=== PATIENT | male | born 1995 ===

== ENCOUNTER 2017-04-07 17:38 | Emergency (ER) | payer MEDICAID ==
[2017-04-07 17:50] VITALS: BP 134/70; PULSE 84; RESP 16; TEMP 98; O2SAT 98
--- NOTE | 2017-04-07 18:34 | ED PDOC ---
HPI: Psych/Substance Abuse Time Seen by Provider: 04/07/17 17:58 Chief Complaint (Nursing): Psychiatric Evaluation Chief Complaint (Provider): Crisis eval History Per: Patient Additional Complaint(s): Patient requesting to speak with "mental health doctor" because he is "homeless. " Patient reports history of depression. Denies SI/HI. Pt denies nay physical complaints at this time Past Medical History Reviewed: Nursing Documentation, Vital Signs Vital Signs: Last Vital Signs Temp 98.0 F 04/07/17 17:45 Pulse 84 04/07/17 17:45 Resp 16 04/07/17 17:45 BP 134/70 04/07/17 17:45 Pulse Ox 98 04/07/17 17:45 - Medical History PMH: No Chronic Diseases - Surgical History Surgical History: No Surg Hx - Family History Family History: States: Unknown Family Hx - Allergies Allergies/Adverse Reactions: Allergies Allergy/AdvReac Type Severity Reaction Status Date / Time No Known Allergies Allergy Verified 04/07/17 17:45 Review of Systems ROS Statement: Except As Marked, All Systems Reviewed And Found Negative Physical Exam - Reviewed Nursing Documentation Reviewed: Yes Vital Signs Reviewed: Yes - Physical Exam Appears: Positive for: Well, Non-toxic, No Acute Distress Head Exam: Positive for: ATRAUMATIC, NORMAL INSPECTION, NORMOCEPHALIC Skin: Positive for: Normal Color, Warm, DRY Eye Exam: Positive for: EOMI, Normal appearance, PERRL ENT: Positive for: Normal ENT Inspection Neck: Positive for: Normal, Painless ROM Cardiovascular/Chest: Positive for: Regular Rate, Rhythm Respiratory: Positive for: CNT, Normal Breath Sounds Gastrointestinal/Abdominal: Positive for: Normal Exam, Bowel Sounds, Soft Back: Positive for: Normal Inspection Extremity: Positive for: Normal ROM Neurologic/Psych: Positive for: Alert, Oriented - ECG O2 Sat by Pulse Oximetry: 98 Medical Decision Making Medical Decision Making: Pt underwent crisis eval, see notes Disposition - Clinical Impression Clinical Impression: Schizophrenia - Patient ED Disposition Is Patient to be Admitted: No - Disposition Disposition: Routine/Home Disposition Time: 19:20 Condition: STABLE Instructions: Schizophrenia (ED) Forms: [employer] (Cuban)
== END 2017-04-07 19:56 | disposition home or self-care (01) ==
LOC: H.ER 17:38
DX: F20.9 Schizophrenia, unspecified (principal); Z59.0 Homelessness

== ENCOUNTER 2017-10-09 13:52 | Emergency (ER) | payer MEDICAID ==
[2017-10-09 13:57] VITALS: TEMP 99; O2SAT 98
[2017-10-09] MEDS ORDERED: Tdap Vaccine 0.5 ml Vial (10-64 yrs) IM ONE ×2 (14:09→15:00)
--- NOTE | 2017-10-09 15:01 | ED PDOC ---
Lower Extremity Pain/Injury Time Seen by Provider: 10/09/17 14:03 Chief Complaint (Nursing): Lower Extremity Problem/Injury Chief Complaint (Provider): Injury to bilateral Knees History Per: Patient History/Exam Limitations: no limitations Onset/Duration Of Symptoms: Days (x5) Current Symptoms Are (Timing): Still Present Severity: None Additional History Per: Patient Additional Complaint(s): 21 year old male presents to the emergency department with injury to his bilateral knees. Patient states that 5 days ago he fell, sustaining cuts to both his knees. He reports that he has been treating the cuts with neosporin but has since developed redness to the left knee around the wound. Denies fever , antipyretic use, numbness, tingling. PMD: Kevin Newsome - Knee Description Of Injury: Fell - Risk Factors DVT Risk Factors: Pos: None Past Medical History Reviewed: Historical Data, Nursing Documentation, Vital Signs Vital Signs: Last Vital Signs Temp 99 F 10/09/17 13:54 Pulse 112 H 10/09/17 13:54 Resp 20 10/09/17 13:54 BP 129/78 10/09/17 13:54 Pulse Ox 98 10/09/17 13:54 - Medical History PMH: Schizophrenia Denies: Diabetes, Hepatitis, HIV, HTN, Seizures, Sexually Transmitted Disease - Surgical History Surgical History: No Surg Hx - Family History Family History: States: Unknown Family Hx - Home Medications Home Medications: Ambulatory Orders Medication Instructions Recorded Cephalexin [cephalexin] 500 mg PO Q6 #28 cap 10/09/17 - Allergies Allergies/Adverse Reactions: Allergies Allergy/AdvReac Type Severity Reaction Status Date / Time No Known Allergies Allergy Verified 04/07/17 17:45 Review of Systems Constitutional: Negative for: Fever Musculoskeletal: Positive for: Other (cuts to bilateral knees) Neurological: Negative for: Numbness (no numbness or tingling to knees) Physical Exam - Reviewed Nursing Documentation Reviewed: Yes Vital Signs Reviewed: Yes - Physical Exam Appears: Positive for: Non-toxic, No Acute Distress Skin: Positive for: Normal Color, Warm, Dry. Negative for: Rash Eye Exam: Positive for: Normal appearance, EOMI, PERRL Pulses-Dorsalis Pedis (L): 2+ Pulses-Dorsalis Pedis (R): 2+ Extremity: Positive for: Normal ROM (Full ROM actively to right and left knee), Other (right knee: superficial abrasion on anterior surface, no tenderness no swelling full ROM actively. Left knee superficial abrasion w/ surrounding erythema no swelling no fluctuance, full ROM actively. ). Negative for: Deformity, Swelling (no swelling to b/l knees) Neurologic/Psych: Positive for: Alert, Oriented, Gait - ECG O2 Sat by Pulse Oximetry: 98 (RA) Pulse Ox Interpretation: Normal - Progress ED Course And Treament: Wound cleansed and dressed by RN. Medical Decision Making Medical Decision Makin Initial Impression 21 year old male presenting with the emergency department with injury to bilateral knee Initial plan: * RAD right Knee * RAD lft Knee * Adacel 0.5 mL IM * Keflex 500mg PO * Reevaluation 1539 PROCEDURE: Bilateral Knee Radiographs. HISTORY: trauma COMPARISON: Left knee radiographs 11/13/2012. FINDINGS: BONES: Right Knee: Normal. No fracture. Left Knee: A stable, small nonaggressive cyst is seen at the left tibial plateau posteriorly. No fracture. JOINTS: Right Knee: Normal. No osteoarthritis. Left knee: Normal. No osteoarthritis. SOFT TISSUES: Right Knee: Normal. Left Knee: Normal. JOINT EFFUSION: Right Knee: None. Left Knee: None. OTHER FINDINGS: None. IMPRESSION: No acute fracture dislocation bilateral knees. Local soft tissues appear diffusely unremarkable. MEGHANN JIN, thank you for letting us take care of you today. Your provider was Danish Perry PA-C and you were treated for KNEE PAIN. The emergency medical care you received today was directed at your acute symptoms. If you were prescribed any medication, please fill it and take as directed. It may take several days for your symptoms to resolve. Return to the Emergency Department if your symptoms worsen, do not improve, or if you have any other problems. Please contact your doctor or call one of the physicians/clinics you have been referred to that are listed on the Patient Visit Information form that is included in your discharge packet. Bring any paperwork you were given at discharge with you along with any medications you are taking to your follow up visit. Our treatment cannot replace ongoing medical care by a primary care provider outside of the emergency department. Thank you for allowing the [facility] team to be part of your care today. If you had an X-Ray or CT scan: A Radiologist will review the ED reading if any change in treatment is needed we will contact you. Documented by Maia Cota acting as a scribe for Danish Perry PA-C. All medical record entries made by the Scribe were at my direction and personally dictated by me. I have reviewed the chart and agree that the record accurately reflects my personal performance of the history, physical exam, medical decision making, and the department course for this patient. I have also personally directed, reviewed, and agree with the discharge instructions and disposition. Disposition - Clinical Impression Clinical Impression: Cellulitis, Abrasions of multiple sites with infection - Patient ED Disposition Is Patient to be Admitted: No - Disposition Referrals: Casey Nava [Outside] Disposition: Routine/Home Disposition Time: 15:45 Condition: STABLE Additional Instructions: Follow up with Dr. Escobar in 2 days for further evaluation. Return to ED immediately if symptoms worsen. Prescriptions: Cephalexin [cephalexin] 500 mg PO Q6 #28 cap Instructions: Wound Care (DC), Cellulitis (Skin Infection), Adult (DC), Skin Abrasions (DC), Cephalexin, Tdap Vaccine Forms: [employer] (Beijing) [employer] (Z[place]an) Print Language: GUYANESE - POA Present On Arrival: None
--- NOTE | 2017-10-09 15:41 | RAD ---
PROCEDURE: Bilateral Knee Radiographs. HISTORY: trauma COMPARISON: Left knee radiographs 11/13/2012. FINDINGS: BONES: Right Knee: Normal. No fracture. Left Knee: A stable, small nonaggressive cyst is seen at the left tibial plateau posteriorly. No fracture. JOINTS: Right Knee: Normal. No osteoarthritis. Left knee: Normal. No osteoarthritis. SOFT TISSUES: Right Knee: Normal. Left Knee: Normal. JOINT EFFUSION: Right Knee: None. Left Knee: None. OTHER FINDINGS: None. IMPRESSION: No acute fracture dislocation bilateral knees. Local soft tissues appear diffusely unremarkable.
[2017-10-09 16:19] VITALS: BP 118/72; PULSE 88; RESP 16
== END 2017-10-09 16:18 | disposition home or self-care (01) ==
LOC: H.ER 13:52
DX: L03.115 Cellulitis of right lower limb (principal); L03.116 Cellulitis of left lower limb; F20.9 Schizophrenia, unspecified

== ENCOUNTER 2017-10-18 21:47 | Inpatient (IN) | payer MEDICAID ==
--- NOTE | 2017-10-18 22:23 | ED PDOC ---
Lower Extremity Pain/Injury Time Seen by Provider: 10/18/17 22:07 Chief Complaint (Nursing): Lower Extremity Problem/Injury Chief Complaint (Provider): leg pain History Per: Patient History/Exam Limitations: no limitations Onset/Duration Of Symptoms: Days (1 week) Additional Complaint(s): 21 y/o male presents for evaluation of pain to bilateral legs x 1 week. Patient states symptoms started after a [id number], sustained abrasions to bilateral knees. Patient was evaluated here and had xray's and prescribed antibiotics. Patient states he still has pain surrounding both knees, and has been unable to walk since last visit. Also notes intermittent numbness. Denies fever, nausea/vomiting, back pain, bowel/bladder incontinence, weakness of extremities. Past Medical History Reviewed: Historical Data, Nursing Documentation, Vital Signs Vital Signs: Last Vital Signs Temp 98.2 F 10/18/17 21:55 Pulse 102 H 10/18/17 21:55 Resp 18 10/18/17 21:55 BP 142/76 10/18/17 21:55 Pulse Ox 98 10/18/17 21:55 - Medical History PMH: Schizophrenia Denies: Diabetes, Hepatitis, HIV, HTN, Seizures, Sexually Transmitted Disease - Surgical History Surgical History: No Surg Hx - Family History Family History: States: Unknown Family Hx - Living Arrangements Living Arrangements: Alone (homeless) - Home Medications Home Medications: Ambulatory Orders Medication Instructions Recorded RX: No Known Home Med 10/19/17 - Allergies Allergies/Adverse Reactions: Allergies Allergy/AdvReac Type Severity Reaction Status Date / Time No Known Allergies Allergy Verified 04/07/17 17:45 Review of Systems ROS Statement: Except As Marked, All Systems Reviewed And Found Negative Musculoskeletal: Positive for: Leg Pain Physical Exam - Reviewed Nursing Documentation Reviewed: Yes Vital Signs Reviewed: Yes - Physical Exam Appears: Positive for: Well, Non-toxic, Uncomfortable (anxious) Head Exam: Positive for: ATRAUMATIC, NORMAL INSPECTION, NORMOCEPHALIC Skin: Positive for: Normal Color Eye Exam: Positive for: Normal appearance ENT: Positive for: Normal ENT Inspection Cardiovascular/Chest: Positive for: Regular Rate, Rhythm Respiratory: Positive for: Normal Breath Sounds Gastrointestinal/Abdominal: Positive for: Normal Exam Back: Positive for: Normal Inspection Extremity: Positive for: Normal ROM (patient actively moving all 4 extremities without difficulty), Other (healing abrasions to bilateral knees; no surrounding edema,or erythema noted. FROM. Distal NV/motor intact) Neurologic/Psych: Positive for: Alert, Oriented (x3), Mood/Affect (flat; internally preoccupied, poor eye contact) - Laboratory Results Result Diagrams: 10/19/17 01:20 10/19/17 01:20 - ECG O2 Sat by Pulse Oximetry: 98 - Progress ED Course And Treament: Patient states he cannot move legs, but is moving them Patient states he cannot write his name, but writes it perfectly H/O schizophrenia but states he does not take meds because he "does not have schizophrenia anymore" Patient displaying paranoid behavior about his body not working, yet moving all extremities during exam; appear to be psychosomatic complaints Patient evaluated by ED attending Dr. Schroeder, agrees with plan to order crisis eval Patient evaluated by drag out worker; to be admitted as per Dr. Dumont Medical Decision Making Medical Decision Making: Patient medically stable for psych admission Disposition - Clinical Impression Clinical Impression: Schizophrenia - Patient ED Disposition Is Patient to be Admitted: Yes - Disposition Disposition Time: 03:02 Condition: STABLE
[2017-10-19 01:27] LABS: BASO # 0.1 K/uL (0.0-0.2); BASO % 1.1 % (0.0-2.0); EOS # 0.1 K/uL (0.0-0.7); EOS % 1.2 % (0.0-4.0); HEMOGLOBIN 12.6 g/dL (12.0-18.0); LYMPH # 2.2 K/uL (1.0-4.3); MEAN CELL VOLUME 87.7 fl (80.0-94.0); MEAN CORPUSCULAR HEMOGLOBIN 29.1 pg (27.0-31.0); MEAN CORPUSCULAR HGB CONC 33.2 g/dL (33.0-37.0); MEAN PLATELET VOLUME 9.7 fl (7.2-11.7); MONO # 0.8 K/uL (0.0-0.8); MONO % 12.1 % (0.0-10.0); NEUT # 3.1 K/uL (1.8-7.0); NEUT % 49.6 % (50.0-75.0); NRBC % 0.1 % (0.0-0.0); RBC 4.33 Mil/uL (4.40-5.90); RED CELL DISTRIBUTION WIDTH 15.6 % (11.5-14.5); WHITE BLOOD COUNT 6.2 K/uL (4.8-10.8)
[2017-10-19 01:40] LABS: ALB/GLOB RATIO 1.2 (1.0-2.1); ALBUMIN 3.6 g/dL (3.5-5.0); ALT/SGPT 45 U/L (21-72); AST/SGOT 22 U/L (17-59); BLOOD UREA NITROGEN 10 mg/dl (9-20); CALCIUM 9.1 mg/dL (8.4-10.2); GFR AFRICAN-AMERICAN > 60; GFR NON-AFRICAN AMERICAN > 60
[2017-10-19 04:05] LABS: URINE BACTERIA RARE (<OCC); URINE BILIRUBIN NEGATIVE (NEGATIVE); URINE BLOOD NEGATIVE (NEGATIVE); URINE CLARITY SLIGHTY-CLOUDY (Clear); URINE COLOR YELLOW (YELLOW); URINE GLUCOSE (UA) NEG (Normal); URINE LEUKOCYTE ESTERASE NEG Leu/uL (Negative); URINE PROTEIN NEGATIVE (NEGATIVE)
[2017-10-19 04:15] LABS: BARBITURATES, UR NEGATIVE (NEGATIVE); BENZODIAZEPINES, UR NEGATIVE (NEGATIVE); OPIATES, UR NEGATIVE (NEGATIVE); PHENCYCLIDINE, UR NEGATIVE (NEGATIVE)
[2017-10-19 04:39] VITALS: O2SAT 100
[2017-10-19] MEDS ORDERED: DiphenhydrAMINE 50 mg/ml Inj IM PRN (05:48)
[2017-10-19] MEDS ORDERED: Magnesium Hydroxide Susp 30 ml UD PO PRN (05:48)
[2017-10-19] MEDS ORDERED: Alum-Mag Hydrox-Simethicone Susp (30 mL) PO PRN (05:48)
--- NOTE | 2017-10-19 06:01 | PCM.BM ---
<AugustmattIgor - Last Filed: 10/19/17 05:59> Treatment Plan Problems - Problems identified on initial assessmt Medication nonadherence Date Initiated: 10/19/17 Time Initiated: 06:00 Assessment reference: NA Status: Active Altered Thought Process Date Initiated: 10/19/17 Time Initiated: 06:00 Assessment reference: NA Status: Active Self Concept Disturbance Date Initiated: 10/19/17 Time Initiated: 06:00 Assessment reference: NA Status: Active Ineffective Coping Date Initiated: 10/19/17 Time Initiated: 06:01 Assessment reference: NA Status: Active Self Care Deficit Date Initiated: 10/19/17 Time Initiated: 06:01 Assessment reference: NA Status: Active Treatment assets and liabiliti Patient Assests: cooperative, self-reliant, good support system, negotiates basic needs Patient Liabilities: live alone, physical pain, substance abuse - Milieu Protocol Maintain good personal hygiene: every shift Encourage regular showers, every shift Remind patient to perform daily oral care, every shift Assist patient to perform ADL's Maintain personal safety: daily Educate patient to report safety concerns to staff, daily Monitor environment for contraband/sharps Medication safety: Monitor for expected outcome, potential side effects: daily, Assess barriers to learning: daily, Assess readiness for medication education: daily <Lois Dumont - Last Filed: 10/19/17 08:37> - Diagnosis (1) Schizophrenia Status: Acute Interventions: Medication management, Individual and group therapy, Psychoeducation 10/19/17 08:37 <Italo Yeboah - Last Filed: 10/20/17 08:57> Family Contact Family involvement: Famliy/SO not involved Family contact: Patient declines to allow family contact at present Family contact name: Pt refused. - Goals for Treatment Patient goals for treatment: Pt reported he would like his infection to be cures. Pt appeares to be floridly psychotic and his thought process and content is influenced by delusions, so realistic, relevant goals were unable to be made. Discharge/Continuing Care - Education Needs Education Needs: Patient Medication, Patient Diagnosis/Disease Process, Patient Coping Skills, Patient Placement options, Patient Community resources, Patient Personal Hygiene/Grooming, Patient Aftercare Safety Plan - Discharge Discharge Criteria: Tolerates medication w/o severe side effects, Free of paranoid thoughts, Free of agitation, Normal sleep pattern, Ability to care for self, Reduction of target symptoms Discharge to:: Detention - Additional Comments 10/20/17 08:56 Pt reported he was admitted due to an infection from cuts on his knees. Pt reported that the infection was deeper in his body. Pt admitted to hearing voices on and off and he appeared internally preoccupied and unable to hold eye contact. Pt appeared in bed due to believing that he cannot walk and his appearance was unkempt. - Treatment Team Participation Discussed with Family/SO: No Was Patient/Family/SO present at Treatment Team Meeting: Yes
[2017-10-19 07:38] LABS: T4 8.48 ug/dl (5.5-11.0)
--- NOTE | 2017-10-19 08:25 | PCM.PSYCH ---
Initial Psychiatric Evaluation - Initial Psychiatric Evaluation Type of Admission: Voluntary Legal Status: Capacity Chief Complaint (in patient's own words): "My body isn't functioning right." Patient's Reaction to Hospitalization: HPI: 21 yo male w/ h/o schizophrenia, presents w/ generalized body complaints that his body isn't working and that he can't walk or write; despite not having any obvious functional deficits. He reports feeling depressed due to perceiving that his body isn't working. He reports that he last heard auditory hallucinations yesterday. He has been non-compliant with treatment and medications, but reports that he was last prescribed Risperdal. He is a poor historian and gives minimal information. Denies VH/SI/HI/paranoia. PPHx: H/o Schizophrenia; h/o psychiatric admission 2013. Not complaint with treatment or medications PMHx: Denies chronic medical conditions except for above complaints that his body does not function properly ALL: NKDA FHx: Denies family history; as per chart, patient's mother may have mental illness SHx: Patient reports that he lives w/ his father, but this is unclear as per chart. Denies drugs/etoh/cig. Current Medications: Active Medications Generic Name Dose Route Start Last Admin Trade Name Freq PRN Reason Stop Dose Admin Acetaminophen 650 mg 10/19/17 05:48 Tylenol 325mg Tab PO Q4 PRN Pain, moderate (4-7) Al Hydrox/Mg Hydrox/Simethicone 30 ml 10/19/17 05:48 Maalox Plus 30 Ml PO Q4 PRN Dyspepsia Diphenhydramine HCl 50 mg 10/19/17 05:48 Benadryl IM Q6 PRN Extrapyramidal S/S Unable PO Diphenhydramine HCl 50 mg 10/19/17 05:48 Benadryl PO Q6 PRN Extrapyramidal Symptoms Haloperidol 5 mg 10/19/17 05:48 Haldol PO Q4 PRN Agitation Haloperidol Lactate 5 mg 10/19/17 05:48 Haldol IM Q4 PRN Agitation, Unable to Take PO Lorazepam 1 mg 10/19/17 05:48 Ativan IM Q8 PRN Anxiety/Agitation,Unable PO Lorazepam 1 mg 10/19/17 05:48 Ativan PO Q8 PRN Anxiety/Agitation Magnesium Hydroxide 30 ml 10/19/17 05:48 Milk Of Magnesia PO HS PRN Constipation Past Psychiatric History - Past Psychiatric History Previous Treatment History: Inpatient Pertinent Medical Hx (Current Medical&Sleep Prob, Allergies): Allergies Allergy/AdvReac Type Severity Reaction Status Date / Time No Known Allergies Allergy Verified 04/07/17 17:45 No Known Home Med 10/19/17 Review of Systems - Psychiatric Psychiatric: As Per HPI, Auditory Hallucinations, Depression, Difficulty Concentrating Mental Status Examination - Personal Presentation Personal Presentation: Looks stated age - Affect Affect: Blunted - Motor Activity Motor Activity: Psychomotor Retardation - Reliability in Providing Information Reliability in Providing Information: Poor, due to alteration in thoughts - Speech Speech: Disorganized - Mood Mood: Depressed - Formal Thought Process Formal Thought Process: Delusions (Delusions that his body is not functioning) - Hallucinations/Delusions Hallucinations: Auditory - Obsessions/Compulsions Obsessions: No Compulsions: No - Cognitive Functions Orientation: Person, Place, Situation, Time Sensorium: Alert Judgement: Imparied, as evidence by: Poor judgement, Imparied, as evidence by: Lack of insight into illness Memory: Recent intact, as evidence by: Ability to recall events of the day - Risk Risk: Diminished functioning - Strength & Assets Inventory Strength & Assets Inventory: Cooperative DSM 5 DX - DSM 5 DSM 5 Diagnosis: Schizophrenia - Recommended/Plan of Treatment Treatment Recommendations and Plan of Treatment: Schizophrenia -Admit to psychiatry unit -Medicine consult -Start Risperdal -Individual and group therapy -Obtain collateral history -Disposition planning Projected ELOS: 7-10 days Discharge Plan and Discharge Criteria: Discharge when patient is psychiatrically stable - Smoking Cessation Smoking Cessation Initiated: No Reason for not providing: Not indicated
--- NOTE | 2017-10-19 10:48 | CP.PCM.CON ---
History of Present Illness - History of Present Illness History of Present Illness: REASON FOR CONSULT: per hospital protocol HPI: 21 year old male PMH schizophrenia currently admitted to psych for schizophrenia. Pt believes he can not walk, however is moving upper and lower extremities spontaneously with 5/5 strength. HD stable, NAD. ROS: per HPI, all other systems reviewed and neg Past Patient History - Past Social History Smoking Status: Never Smoked - CARDIAC Hx Cardiac Disorders: No - PULMONARY Hx Tuberculosis: No - NEUROLOGICAL Hx Seizures: No - HEMATOLOGICAL/ONCOLOGICAL Hx Human Immunodeficiency Virus (HIV): No - MUSCULOSKELETAL/RHEUMATOLOGICAL Hx Falls: Yes - GENITOURINARY/GYNECOLOGICAL Hx Sexually Transmitted Disorders: No - PSYCHIATRIC Hx Substance Use: Yes (Cannabis) - SURGICAL HISTORY Hx Surgeries: Yes Hx Tonsillectomy: Yes - ANESTHESIA Hx Anesthesia: Yes Meds Allergies/Adverse Reactions: Allergies Allergy/AdvReac Type Severity Reaction Status Date / Time No Known Allergies Allergy Verified 04/07/17 17:45 - Medications Medications: Current Medications Acetaminophen (Tylenol 325mg Tab) 650 mg PO Q4 PRN PRN Reason: Pain, moderate (4-7) Last Admin: 10/19/17 09:16 Dose: 650 mg Al Hydrox/Mg Hydrox/Simethicone (Maalox Plus 30 Ml) 30 ml PO Q4 PRN PRN Reason: Dyspepsia Diphenhydramine HCl (Benadryl) 50 mg IM Q6 PRN PRN Reason: Extrapyramidal S/S Unable PO Diphenhydramine HCl (Benadryl) 50 mg PO Q6 PRN PRN Reason: Extrapyramidal Symptoms Haloperidol (Haldol) 5 mg PO Q4 PRN PRN Reason: Agitation Haloperidol Lactate (Haldol) 5 mg IM Q4 PRN PRN Reason: Agitation, Unable to Take PO Lorazepam (Ativan) 1 mg IM Q8 PRN PRN Reason: Anxiety/Agitation,Unable PO Lorazepam (Ativan) 1 mg PO Q8 PRN PRN Reason: Anxiety/Agitation Magnesium Hydroxide (Milk Of Magnesia) 30 ml PO HS PRN PRN Reason: Constipation Risperidone (Risperdal M-Tab) 0.5 mg PO Q12 RAFFY Physical Exam - Constitutional Appears: Well, No Acute Distress - Head Exam Head Exam: ATRAUMATIC, NORMAL INSPECTION, NORMOCEPHALIC - Eye Exam Eye Exam: EOMI, Normal appearance, PERRL Pupil Exam: NORMAL ACCOMODATION, PERRL - ENT Exam ENT Exam: Mucous Membranes Moist, Normal Exam - Neck Exam Neck exam: Positive for: Full Rom, Normal Inspection - Respiratory Exam Respiratory Exam: Clear to Auscultation Bilateral, NORMAL BREATHING PATTERN. absent: Rales - Cardiovascular Exam Cardiovascular Exam: REGULAR RHYTHM, +S1, +S2 - GI/Abdominal Exam GI & Abdominal Exam: Normal Bowel Sounds, Soft. absent: Organomegaly, Tenderness - Extremities Exam Extremities exam: Positive for: normal capillary refill, pedal pulses present - Back Exam Back exam: absent: CVA tenderness (L), CVA tenderness (R) - Neurological Exam Neurological exam: Alert, CN II-XII Intact, Oriented x3, Reflexes Normal - Psychiatric Exam Psychiatric exam: Flat Affect, Normal Mood Additional comments: seems preoccupied. - Skin Skin Exam: Dry, Warm Results - Vital Signs Recent Vital Signs: Last Vital Signs Temp 97.9 F 10/19/17 06:00 Pulse 84 10/19/17 06:00 Resp 19 10/19/17 06:00 BP 156/95 H 10/19/17 06:00 Pulse Ox 100 10/19/17 04:38 - Labs Result Diagrams: 10/19/17 01:20 10/19/17 01:20 Labs: Laboratory Results - last 24 hr 10/19/17 10/19/17 10/19/17 01:20 01:20 03:49 WBC 6.2 RBC 4.33 L Hgb 12.6 Hct 37.9 MCV 87.7 MCH 29.1 MCHC 33.2 RDW 15.6 H Plt Count 325 MPV 9.7 Neut % (Auto) 49.6 L Lymph % (Auto) 36.0 [place] % (Auto) 12.1 H Eos % (Auto) 1.2 Baso % (Auto) 1.1 Neut # (Auto) 3.1 Lymph # (Auto) 2.2 [place] # (Auto) 0.8 Eos # (Auto) 0.1 Baso # (Auto) 0.1 Sodium 139 Potassium 3.8 Chloride 102 Carbon Dioxide 26 Anion Gap 15 BUN 10 Creatinine 0.5 L Est GFR ( Amer) > 60 Est GFR (Non-Af Amer) > 60 Random Glucose 91 Calcium 9.1 Total Bilirubin 0.8 AST 22 ALT 45 Alkaline Phosphatase 48 Total Protein 6.8 Albumin 3.6 Globulin 3.1 Albumin/Globulin Ratio 1.2 Triglycerides Cholesterol LDL Cholesterol Direct HDL Cholesterol Thyroxine (T4) TSH 3rd Generation Urine Color Urine Clarity Urine pH Ur Specific [place] Urine Protein Urine Glucose (UA) Urine Ketones Urine Blood Urine Nitrate Urine Bilirubin Urine Urobilinogen Ur Leukocyte Esterase Urine RBC (Auto) Urine Microscopic WBC Urine Bacteria Urine Opiates Screen Negative Urine Methadone Screen Negative Ur Barbiturates Screen Negative Ur Phencyclidine Scrn Negative Ur Amphetamines Screen Negative U Benzodiazepines Scrn Negative U Oth Cocaine Metabols Negative U Cannabinoids Screen Positive H Alcohol, Quantitative < 10 10/19/17 10/19/17 03:49 06:55 WBC RBC Hgb Hct MCV MCH MCHC RDW Plt Count MPV Neut % (Auto) Lymph % (Auto) [place] % (Auto) Eos % (Auto) Baso % (Auto) Neut # (Auto) Lymph # (Auto) [place] # (Auto) Eos # (Auto) Baso # (Auto) Sodium Potassium Chloride Carbon Dioxide Anion Gap BUN Creatinine Est GFR ( Amer) Est GFR (Non-Af Amer) Random Glucose Calcium Total Bilirubin AST ALT Alkaline Phosphatase Total Protein Albumin Globulin Albumin/Globulin Ratio Triglycerides 141 Cholesterol 115 LDL Cholesterol Direct 66 HDL Cholesterol 17 L Thyroxine (T4) 8.48 TSH 3rd Generation 2.88 Urine Color Yellow Urine Clarity Slighty-cloudy Urine pH 6.0 Ur Specific [place] 1.024 Urine Protein Negative Urine Glucose (UA) Neg Urine Ketones Negative Urine Blood Negative Urine Nitrate Negative Urine Bilirubin Negative Urine Urobilinogen 4.0 Ur Leukocyte Esterase Neg Urine RBC (Auto) 3 Urine Microscopic WBC 2 Urine Bacteria Rare Urine Opiates Screen Urine Methadone Screen Ur Barbiturates Screen Ur Phencyclidine Scrn Ur Amphetamines Screen U Benzodiazepines Scrn U Oth Cocaine Metabols U Cannabinoids Screen Alcohol, Quantitative Assessment & Plan - Assessment and Plan (Free Text) Plan: 21 year old male PMH schizophrenia currently admitted to psych for schizophrenia. Pt believes he can not walk, however is moving upper and lower extremities spontaneously with 5/5 strength. HD stable, NAD. Schizophrenia - management per psych - patient also believes he can not walk - neuro consult was also ordered by primary team
[2017-10-19] MEDS: Risperidone M tab 0.5MG PO SCH ×2 (13:33→21:09)
--- NOTE | 2017-10-19 18:05 | CP.PCM.CON ---
History of Present Illness - History of Present Illness History of Present Illness: Neurology Consultation Note: Mr. Linn is a 21-year-old man with a past medical history of schizophrenia, who is non-compliant with medications, and presented to the ED complaining of difficulty with ambulation and function of his lower extremities. He said that the weakness has been gradual and at this point he is unable to ambulate. He has scabs on both knees from recent falls. He complains of back pain and abdominal pain. He does not recall if he had any upper respiratory illness or recent GI illness. Neurology was consulted to assist with the management and care. Review of Systems - Review of Systems All systems: reviewed and no additional remarkable complaints except Past Patient History - Past Social History Smoking Status: Never Smoked - CARDIAC Hx Cardiac Disorders: No - PULMONARY Hx Tuberculosis: No - NEUROLOGICAL Hx Seizures: No - HEMATOLOGICAL/ONCOLOGICAL Hx Human Immunodeficiency Virus (HIV): No - MUSCULOSKELETAL/RHEUMATOLOGICAL Hx Falls: Yes - GENITOURINARY/GYNECOLOGICAL Hx Sexually Transmitted Disorders: No - PSYCHIATRIC Hx Substance Use: Yes (Cannabis) - SURGICAL HISTORY Hx Surgeries: Yes Hx Tonsillectomy: Yes - ANESTHESIA Hx Anesthesia: Yes Meds Allergies/Adverse Reactions: Allergies Allergy/AdvReac Type Severity Reaction Status Date / Time No Known Allergies Allergy Verified 04/07/17 17:45 - Medications Medications: Current Medications Acetaminophen (Tylenol 325mg Tab) 650 mg PO Q4 PRN PRN Reason: Pain, moderate (4-7) Last Admin: 10/19/17 09:16 Dose: 650 mg Al Hydrox/Mg Hydrox/Simethicone (Maalox Plus 30 Ml) 30 ml PO Q4 PRN PRN Reason: Dyspepsia Diphenhydramine HCl (Benadryl) 50 mg IM Q6 PRN PRN Reason: Extrapyramidal S/S Unable PO Diphenhydramine HCl (Benadryl) 50 mg PO Q6 PRN PRN Reason: Extrapyramidal Symptoms Haloperidol (Haldol) 5 mg PO Q4 PRN PRN Reason: Agitation Haloperidol Lactate (Haldol) 5 mg IM Q4 PRN PRN Reason: Agitation, Unable to Take PO Lorazepam (Ativan) 1 mg IM Q8 PRN PRN Reason: Anxiety/Agitation,Unable PO Lorazepam (Ativan) 1 mg PO Q8 PRN PRN Reason: Anxiety/Agitation Magnesium Hydroxide (Milk Of Magnesia) 30 ml PO HS PRN PRN Reason: Constipation Risperidone (Risperdal M-Tab) 0.5 mg PO Q12 RAFFY Last Admin: 10/19/17 13:33 Dose: 0.5 mg Physical Exam - Neurological Exam Neurological exam: Alert, CN II-XII Intact, Oriented x3 Additional comments: Reflexes were diminished throughout. He had 4/5 strength in both upper extremities and 2-3/5 strength proximally in both lower extremities, with 3/5 strength distally in both lower extremities. Effort was questionable. Gait could not be assessed. Results - Vital Signs Recent Vital Signs: Last Vital Signs Temp 97.5 F L 10/19/17 15:57 Pulse 83 10/19/17 15:57 Resp 20 10/19/17 15:57 BP 130/76 10/19/17 15:57 Pulse Ox 100 10/19/17 04:38 - Labs Result Diagrams: 10/19/17 01:20 10/19/17 01:20 Labs: Laboratory Results - last 24 hr 10/19/17 10/19/17 10/19/17 01:20 01:20 03:49 WBC 6.2 RBC 4.33 L Hgb 12.6 Hct 37.9 MCV 87.7 MCH 29.1 MCHC 33.2 RDW 15.6 H Plt Count 325 MPV 9.7 Neut % (Auto) 49.6 L Lymph % (Auto) 36.0 [place] % (Auto) 12.1 H Eos % (Auto) 1.2 Baso % (Auto) 1.1 Neut # (Auto) 3.1 Lymph # (Auto) 2.2 [place] # (Auto) 0.8 Eos # (Auto) 0.1 Baso # (Auto) 0.1 Sodium 139 Potassium 3.8 Chloride 102 Carbon Dioxide 26 Anion Gap 15 BUN 10 Creatinine 0.5 L Est GFR ( Amer) > 60 Est GFR (Non-Af Amer) > 60 Random Glucose 91 Hemoglobin A1c Calcium 9.1 Total Bilirubin 0.8 AST 22 ALT 45 Alkaline Phosphatase 48 Total Protein 6.8 Albumin 3.6 Globulin 3.1 Albumin/Globulin Ratio 1.2 Triglycerides Cholesterol LDL Cholesterol Direct HDL Cholesterol Thyroxine (T4) TSH 3rd Generation Urine Color Urine Clarity Urine pH Ur Specific [place] Urine Protein Urine Glucose (UA) Urine Ketones Urine Blood Urine Nitrate Urine Bilirubin Urine Urobilinogen Ur Leukocyte Esterase Urine RBC (Auto) Urine Microscopic WBC Urine Bacteria Urine Opiates Screen Negative Urine Methadone Screen Negative Ur Barbiturates Screen Negative Ur Phencyclidine Scrn Negative Ur Amphetamines Screen Negative U Benzodiazepines Scrn Negative U Oth Cocaine Metabols Negative U Cannabinoids Screen Positive H Alcohol, Quantitative < 10 RPR 10/19/17 10/19/17 10/19/17 03:49 06:55 06:55 WBC RBC Hgb Hct MCV MCH MCHC RDW Plt Count MPV Neut % (Auto) Lymph % (Auto) [place] % (Auto) Eos % (Auto) Baso % (Auto) Neut # (Auto) Lymph # (Auto) [place] # (Auto) Eos # (Auto) Baso # (Auto) Sodium Potassium Chloride Carbon Dioxide Anion Gap BUN Creatinine Est GFR ( Amer) Est GFR (Non-Af Amer) Random Glucose Hemoglobin A1c 5.3 Calcium Total Bilirubin AST ALT Alkaline Phosphatase Total Protein Albumin Globulin Albumin/Globulin Ratio Triglycerides 141 Cholesterol 115 LDL Cholesterol Direct 66 HDL Cholesterol 17 L Thyroxine (T4) 8.48 TSH 3rd Generation 2.88 Urine Color Yellow Urine Clarity Slighty-cloudy Urine pH 6.0 Ur Specific [place] 1.024 Urine Protein Negative Urine Glucose (UA) Neg Urine Ketones Negative Urine Blood Negative Urine Nitrate Negative Urine Bilirubin Negative Urine Urobilinogen 4.0 Ur Leukocyte Esterase Neg Urine RBC (Auto) 3 Urine Microscopic WBC 2 Urine Bacteria Rare Urine Opiates Screen Urine Methadone Screen Ur Barbiturates Screen Ur Phencyclidine Scrn Ur Amphetamines Screen U Benzodiazepines Scrn U Oth Cocaine Metabols U Cannabinoids Screen Alcohol, Quantitative RPR 10/19/17 06:55 WBC RBC Hgb Hct MCV MCH MCHC RDW Plt Count MPV Neut % (Auto) Lymph % (Auto) [place] % (Auto) Eos % (Auto) Baso % (Auto) Neut # (Auto) Lymph # (Auto) [place] # (Auto) Eos # (Auto) Baso # (Auto) Sodium Potassium Chloride Carbon Dioxide Anion Gap BUN Creatinine Est GFR ( Amer) Est GFR (Non-Af Amer) Random Glucose Hemoglobin A1c Calcium Total Bilirubin AST ALT Alkaline Phosphatase Total Protein Albumin Globulin Albumin/Globulin Ratio Triglycerides Cholesterol LDL Cholesterol Direct HDL Cholesterol Thyroxine (T4) TSH 3rd Generation Urine Color Urine Clarity Urine pH Ur Specific [place] Urine Protein Urine Glucose (UA) Urine Ketones Urine Blood Urine Nitrate Urine Bilirubin Urine Urobilinogen Ur Leukocyte Esterase Urine RBC (Auto) Urine Microscopic WBC Urine Bacteria Urine Opiates Screen Urine Methadone Screen Ur Barbiturates Screen Ur Phencyclidine Scrn Ur Amphetamines Screen U Benzodiazepines Scrn U Oth Cocaine Metabols U Cannabinoids Screen Alcohol, Quantitative RPR Nonreactive Assessment & Plan (1) Lower extremity weakness Assessment and Plan: It is difficult to determine the origin of the weakness since the patient is a poor historian. His strength in his lower extremities is diminished and his reflexes are also not normal. I recommend obtaining an MRI of the lumbar and thoracic spine with and without contrast. If it is normal, we may consider an LP to rule out GBS. Thank you. Status: Acute Priority: High
[2017-10-20] MEDS: Risperidone M tab 0.5MG PO SCH (08:18)
[2017-10-20] MEDS ORDERED: Gadodiamide 287 MG/ML VIAL (15ML) IV ONE (08:43)
--- NOTE | 2017-10-20 09:12 | PCM.PYCHPN ---
Psychiatric Progress Note - Psychiatric Progress Note Patient seen today, length of contact: Patient evaluated, case discussed with team, chart reviewed Patient Chief Complaint: "My body isn't functioning right." Problems Identified/Issues Discussed: Patient continues to be bizarre w/ poverty of speech and stares blankly at teletypewriter operator. He reports feeling depressed and distressed due to his belief that his body is not working. He denies acute AH, but seems internally preoccupied. He denies adverse effects to medications. Medication Change: Yes (Increase Risperdal) Medical Record Reviewed: Yes Consults ordered or reviewed: Medicine consult, Neurology consult Mental Status Examination - Cognitive Function Orientation: Person, Place, Situation, Time Memory: Intact Association: Loose Fund of Knowledge: Poor - Mood Mood: Depressed - Affect Affect: Blunted - Speech Speech: Soft - Formal Thought Process Formal Thought Process: Delusions (Delusions that his body is not functioning), Other (Poverty of speech) Psychotic Thoughts and Behaviors: +Internally preoccupied - Suicidal Ideation Suicidal Ideation: No - Homicidal Ideation Homicidal Ideation: No Goal/Treatment Plan - Goal/Treatment Plan Need for Continued Stay: Remain at risks for inpatient hospitalization, Discharge may exacerbated symptoms, Severe functional impairment Progress Toward Problem(s) and Goals/Treatment Plan: Schizophrenia -Medicine consult -Neurology consult -Titrate Risperdal -Individual and group therapy -Disposition planning Estimated Date of D/C: 10/26/17
[2017-10-20] MEDS ORDERED: Risperidone M tab 1 MG PO SCH (21:00)
--- NOTE | 2017-10-21 07:32 | PCM.PYCHPN ---
Psychiatric Progress Note - Psychiatric Progress Note Patient seen today, length of contact: Patient evaluated, case discussed with team, chart reviewed Patient Chief Complaint: "My body isn't functioning right." Problems Identified/Issues Discussed: Patient continues to be bizarre w/ poverty of speech and auditory hallucinations. He reports feeling depressed and distressed due to his belief that his body is not working. +Internally preoccupied. He denies adverse effects to medications. Medication Change: Yes (Increase Risperdal) Medical Record Reviewed: Yes Consults ordered or reviewed: Medicine consult, Neurology consult Mental Status Examination - Cognitive Function Orientation: Person, Place, Situation, Time Memory: Intact Association: Loose Fund of Knowledge: Poor Decription of patient's judgement and insights: Poor I/J - Mood Mood: Depressed - Affect Affect: Blunted - Speech Speech: Soft - Formal Thought Process Formal Thought Process: Hallucinations, Delusions (Delusions that his body is not functioning), Other (Poverty of speech) Psychotic Thoughts and Behaviors: +Internally preoccupied - Suicidal Ideation Suicidal Ideation: No - Homicidal Ideation Homicidal Ideation: No Goal/Treatment Plan - Goal/Treatment Plan Need for Continued Stay: Remain at risks for inpatient hospitalization, Discharge may exacerbated symptoms, Severe functional impairment Progress Toward Problem(s) and Goals/Treatment Plan: Schizophrenia -Medicine consult -Neurology consult -Titrate Risperdal -Individual and group therapy -Disposition planning Estimated Date of D/C: 10/26/17
[2017-10-21] MEDS: Risperidone M tab 1 MG PO SCH (08:39)
[2017-10-21] MEDS ORDERED: Risperidone M TAB 2 MG PO SCH (22:00)
[2017-10-22] MEDS: Risperidone M tab 1 MG PO SCH (08:54)
--- NOTE | 2017-10-22 09:23 | PCM.PYCHPN ---
Psychiatric Progress Note - Psychiatric Progress Note Patient seen today, length of contact: Patient evaluated, case discussed with team, chart reviewed Patient Chief Complaint: "My body isn't functioning right." Problems Identified/Issues Discussed: Patient continues to complaint of leg numbness and believes he can not walk. He continues to be bizarre w/ poverty of speech and auditory hallucinations. He reports feeling depressed and distressed due to his belief that his body is not working. +Internally preoccupied. He denies adverse effects to medications. Medication Change: Yes (Increase Risperdal) Medical Record Reviewed: Yes Consults ordered or reviewed: Medicine consult, Neurology consult Mental Status Examination - Cognitive Function Orientation: Person, Place, Situation, Time Memory: Intact Association: Loose Fund of Knowledge: Poor Decription of patient's judgement and insights: Poor I/J - Mood Mood: Depressed - Affect Affect: Blunted - Speech Speech: Soft - Formal Thought Process Formal Thought Process: Hallucinations, Delusions (Delusions that his body is not functioning), Other (Poverty of speech) Psychotic Thoughts and Behaviors: +Internally preoccupied - Suicidal Ideation Suicidal Ideation: No - Homicidal Ideation Homicidal Ideation: No Goal/Treatment Plan - Goal/Treatment Plan Need for Continued Stay: Remain at risks for inpatient hospitalization, Discharge may exacerbated symptoms, Severe functional impairment Progress Toward Problem(s) and Goals/Treatment Plan: Schizophrenia -Medicine consult -Neurology consult -Titrate Risperdal -Individual and group therapy -Disposition planning Estimated Date of D/C: 10/26/17
--- NOTE | 2017-10-22 13:20 | MRI ---
PROCEDURE: MR THORACIC SPINE WITH AND WITHOUT CONTRAST HISTORY: lower extremity weakness COMPARISON: None available. TECHNIQUE: Multiecho multiplanar sequences were performed through the thoracic spine with and without the use of intravenous contrast. FINDINGS: ALIGNMENT: Normal thoracic spinal alignment. Normal thoracic kyphosis. VERTEBRA: Vertebral body height are preserved. MARROW: Marrow signal unremarkable. PARASPINAL SOFT TISSUES: Unremarkable. CORD: Unremarkable thoracic cord. No volume loss, signal abnormality or syrinx. DISCS: There is a small right paracentral disc herniation at T3-T4 associated with mild spinal stenosis. Moderate degenerative disc changes are noted at the lower thoracic spine. ENHANCEMENT: No abnormal enhancement. OTHER FINDINGS: None. IMPRESSION: Limited study due to motion artifact. Small posterior osteophyte disc herniation at T3-T4 associated with mild right paraspinal stenosis. Iaux-ia-[id number] degenerative disc changes at the lower thoracic spine. Preliminary report was submitted by [facility].
--- NOTE | 2017-10-22 13:55 | MRI ---
PROCEDURE: MR LUMBAR SPINE WITH AND WITHOUT CONTRAST HISTORY: lower extremity weakness COMPARISON: None available. TECHNIQUE: Multiecho multiplanar sequences were performed through the lumbar spine with and without the use of intravenous contrast. FINDINGS: Normal lumbar lordosis. Vertebral body heights are preserved. Marrow signal unremarkable. Conus medullaris unremarkable at the level of Paraspinal soft tissues are unremarkable. No abnormal enhancement. T12-L1: No disc herniation, spinal canal stenosis or neural foraminal narrowing. L1-2: No disc herniation, spinal canal stenosis or neural foraminal narrowing. L2-3: No disc herniation, spinal canal stenosis or neural foraminal narrowing. L3-4: No disc herniation, spinal canal stenosis or neural foraminal narrowing. L4-5: No disc herniation, spinal canal stenosis or neural foraminal narrowing. L5-S1: No disc herniation, spinal canal stenosis or neural foraminal narrowing. OTHER FINDINGS: None. IMPRESSION: No evidence of significant lumbar spine or neural foraminal narrowing. Unremarkable MRI of the lumbar spine without and with IV contrast.
[2017-10-22] MEDS ORDERED: Risperidone M TAB 2 MG PO SCH (21:00)
--- NOTE | 2017-10-23 08:25 | PCM.PYCHPN ---
Psychiatric Progress Note - Psychiatric Progress Note Patient seen today, length of contact: Patient evaluated, case discussed with team, chart reviewed Patient Chief Complaint: "My body isn't functioning right." Problems Identified/Issues Discussed: Patient continues to be somatically preoccupied, is worried he has cancer and is convinced that he can not walk. He is concerned that the Risperdal makes hi tired in the morning, so we discussed changing the dosage to HS. He continues to be bizarre w/ poverty of speech and auditory hallucinations. He reports feeling depressed and distressed due to his belief that his body is not working. +Internally preoccupied. He denies adverse effects to medications. Medication Change: Yes (Change Risperdal to HS) Medical Record Reviewed: Yes Consults ordered or reviewed: Medicine consult, Neurology consult Mental Status Examination - Cognitive Function Orientation: Person, Place, Situation, Time Memory: Intact Association: Loose Fund of Knowledge: Poor Decription of patient's judgement and insights: Poor I/J - Mood Mood: Depressed - Affect Affect: Blunted - Speech Speech: Soft - Formal Thought Process Formal Thought Process: Hallucinations, Delusions (Delusions that his body is not functioning), Other (Poverty of speech) Psychotic Thoughts and Behaviors: +Internally preoccupied - Suicidal Ideation Suicidal Ideation: No - Homicidal Ideation Homicidal Ideation: No Goal/Treatment Plan - Goal/Treatment Plan Need for Continued Stay: Remain at risks for inpatient hospitalization, Discharge may exacerbated symptoms, Severe functional impairment Progress Toward Problem(s) and Goals/Treatment Plan: Schizophrenia -Medicine consult -Neurology consult -Risperdal 4 mg PO HS; Cogentin 0.5 mg PO HS -Individual and group therapy -Disposition planning Estimated Date of D/C: 10/29/17
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
[2017-10-23] MEDS ORDERED: Risperidone M TAB 2 MG PO SCH (22:00)
--- NOTE | 2017-10-24 08:07 | PCM.PYCHPN ---
Psychiatric Progress Note - Psychiatric Progress Note Patient seen today, length of contact: Patient evaluated, case discussed with team, chart reviewed Patient Chief Complaint: "My body isn't functioning right." Problems Identified/Issues Discussed: Patient continues to be somatically preoccupied and is convinced that he can not walk. He only took half the dosage of Risperdal last night and fluctuates about how much he is agreeable to taking. He continues to be bizarre w/ poverty of speech and auditory hallucinations. He reports feeling depressed and distressed due to his belief that his body is not working. +Internally preoccupied. He denies adverse effects to medications. Medication Change: Yes (Increase Risperdal) Medical Record Reviewed: Yes Consults ordered or reviewed: Medicine consult, Neurology consult Mental Status Examination - Cognitive Function Orientation: Person, Place, Situation, Time Memory: Intact Association: Loose Fund of Knowledge: Poor Decription of patient's judgement and insights: Poor I/J - Mood Mood: Depressed - Affect Affect: Blunted - Speech Speech: Soft - Formal Thought Process Formal Thought Process: Hallucinations, Delusions (Delusions that his body is not functioning), Other (Poverty of speech) Psychotic Thoughts and Behaviors: +Internally preoccupied - Suicidal Ideation Suicidal Ideation: No - Homicidal Ideation Homicidal Ideation: No Goal/Treatment Plan - Goal/Treatment Plan Need for Continued Stay: Remain at risks for inpatient hospitalization, Discharge may exacerbated symptoms, Severe functional impairment Progress Toward Problem(s) and Goals/Treatment Plan: Schizophrenia -Medicine consult -Neurology consult -Increase Risperdal; Cogentin 0.5 mg PO Q12 -Individual and group therapy -Disposition planning Estimated Date of D/C: 10/29/17
[2017-10-24] MEDS ORDERED: Risperidone M tab 1 MG PO SCH (09:00)
[2017-10-24] MEDS ORDERED: Risperidone M TAB 2 MG PO SCH (09:00)
--- NOTE | 2017-10-25 10:30 | PCM.PYCHPN ---
Psychiatric Progress Note - Psychiatric Progress Note Patient seen today, length of contact: Patient evaluated, case discussed with team, chart reviewed Patient Chief Complaint: "My body isn't functioning right." Problems Identified/Issues Discussed: Patient continues to be somatically preoccupied and is convinced that he can not walk. He has been compliant with the Risperdal. He continues to be bizarre w/ poverty of speech and auditory hallucinations. He reports feeling depressed and distressed due to his belief that his body is not working. + Internally preoccupied. He denies adverse effects to medications. Medication Change: Yes (Increase Risperdal) Medical Record Reviewed: Yes Consults ordered or reviewed: Medicine consult, Neurology consult Mental Status Examination - Cognitive Function Orientation: Person, Place, Situation, Time Memory: Intact Association: Loose Fund of Knowledge: Poor Decription of patient's judgement and insights: Poor I/J - Mood Mood: Depressed - Affect Affect: Blunted - Speech Speech: Soft - Formal Thought Process Formal Thought Process: Hallucinations, Delusions (Delusions that his body is not functioning), Other (Poverty of speech) Psychotic Thoughts and Behaviors: +Internally preoccupied - Suicidal Ideation Suicidal Ideation: No - Homicidal Ideation Homicidal Ideation: No Goal/Treatment Plan - Goal/Treatment Plan Need for Continued Stay: Remain at risks for inpatient hospitalization, Discharge may exacerbated symptoms, Severe functional impairment Progress Toward Problem(s) and Goals/Treatment Plan: Schizophrenia -Medicine consult -Neurology consult -PT evaluation -Risperdal 3 mg PO Q12; Cogentin 0.5 mg PO Q12 -Individual and group therapy -Disposition planning Estimated Date of D/C: 10/29/17
--- NOTE | 2017-10-26 09:59 | PCM.PYCHPN ---
Psychiatric Progress Note - Psychiatric Progress Note Patient seen today, length of contact: Patient evaluated, case discussed with team, chart reviewed Patient Chief Complaint: "My body isn't functioning right." Problems Identified/Issues Discussed: Patient continues to be somatically preoccupied and is convinced that he can not walk. Psychoeducation provided that the patient does not have any medical deficits that would prevent him from walking. He continues to be bizarre w/ poverty of speech. He denies current AH. He reports feeling depressed and distressed due to his belief that his body is not working. He denies adverse effects to medications. Medication Change: No Medical Record Reviewed: Yes Consults ordered or reviewed: Medicine consult, Neurology consult Mental Status Examination - Cognitive Function Orientation: Person, Place, Situation, Time Memory: Intact Association: Loose Fund of Knowledge: Poor Decription of patient's judgement and insights: Poor I/J - Mood Mood: Depressed - Affect Affect: Blunted - Speech Speech: Soft - Formal Thought Process Formal Thought Process: Delusions (Delusions that his body is not functioning), Other (Poverty of speech) Psychotic Thoughts and Behaviors: +Somatic delusions - Suicidal Ideation Suicidal Ideation: No - Homicidal Ideation Homicidal Ideation: No Goal/Treatment Plan - Goal/Treatment Plan Need for Continued Stay: Remain at risks for inpatient hospitalization, Discharge may exacerbated symptoms, Severe functional impairment Progress Toward Problem(s) and Goals/Treatment Plan: Schizophrenia -Medicine consult -Neurology consult -PT evaluation -Risperdal 3 mg PO Q12; Cogentin 0.5 mg PO Q12 -Individual and group therapy -Disposition planning Estimated Date of D/C: 10/31/17
--- NOTE | 2017-10-26 15:34 | PCM.BM ---
Treatment Plan Problems - Problems identified on initial assessmt Medication nonadherence Date Initiated: 10/19/17 Time Initiated: 06:00 Assessment reference: NA Status: Active Altered Thought Process Date Initiated: 10/19/17 Time Initiated: 06:00 Assessment reference: NA Status: Active Self Concept Disturbance Date Initiated: 10/19/17 Time Initiated: 06:00 Assessment reference: NA Status: Active Ineffective Coping Date Initiated: 10/19/17 Time Initiated: 06:01 Assessment reference: NA Status: Active Self Care Deficit Date Initiated: 10/19/17 Time Initiated: 06:01 Assessment reference: NA Status: Active Treatment assets and liabiliti Patient Assests: cooperative, self-reliant, good support system, negotiates basic needs Patient Liabilities: live alone, physical pain, substance abuse - Milieu Protocol Maintain good personal hygiene: every shift Encourage regular showers, every shift Remind patient to perform daily oral care, every shift Assist patient to perform ADL's Maintain personal safety: daily Educate patient to report safety concerns to staff, daily Monitor environment for contraband/sharps Medication safety: Monitor for expected outcome, potential side effects: daily, Assess barriers to learning: daily, Assess readiness for medication education: daily Milieu Narrative: Schizophrenia -Medicine consult -Neurology consult -PT evaluation -Risperdal 3 mg PO Q12; Cogentin 0.5 mg PO Q12 -Individual and group therapy -Disposition planning Family Contact Family involvement: Famliy/SO not involved Family contact: Patient declines to allow family contact at present Family contact name: Pt refused. - Goals for Treatment Patient goals for treatment: Pt reported he would like his infection to be cures. Pt appeares to be floridly psychotic and his thought process and content is influenced by delusions, so realistic, relevant goals were unable to be made. Discharge/Continuing Care - Education Needs Education Needs: Patient Medication, Patient Diagnosis/Disease Process, Patient Coping Skills, Patient Placement options, Patient Community resources, Patient Personal Hygiene/Grooming, Patient Aftercare Safety Plan - Discharge Discharge Criteria: Tolerates medication w/o severe side effects, Free of paranoid thoughts, Free of agitation, Normal sleep pattern, Ability to care for self, Reduction of target symptoms Discharge to:: Group Home - Additional Comments 10/20/17 08:56 Pt reported he was admitted due to an infection from cuts on his knees. Pt reported that the infection was deeper in his body. Pt admitted to hearing voices on and off and he appeared internally preoccupied and unable to hold eye contact. Pt appeared in bed due to believing that he cannot walk and his appearance was unkempt. - Treatment Team Participation Patient/Family/SO Statement: Schizophrenia -Medicine consult -Neurology consult -PT evaluation -Risperdal 3 mg PO Q12; Cogentin 0.5 mg PO Q12 -Individual and group therapy -Disposition planning Discussed with Family/SO: No Was Patient/Family/SO present at Treatment Team Meeting: Yes Treatment Plan Review - Problem Medication nonadherence Time Initiated: 06:00 Altered Thought Process Time Initiated: 06:00 Self Concept Disturbance Time Initiated: 06:00 Ineffective Coping Time Initiated: 06:01 Self Care Deficit Time Initiated: 06:01 - Discharge / Continuing Care Discharge to:: Group Home Behavioral Health Services: Outpatient therapy Health Needs: Follow up care/test (Staff spoke with pt to inform him that MRI, PT and all other medical tests came back showing that there is nothing medically wrong with pt and pt is capable of walking. Pt was unable to comprehend this and could not reality test in the least. Pt asked what hospital he could go to where his ailments could be appropriately treated. )
--- NOTE | 2017-10-27 08:52 | PCM.PYCHPN ---
Psychiatric Progress Note - Psychiatric Progress Note Patient seen today, length of contact: Patient evaluated, case discussed with team, chart reviewed Patient Chief Complaint: "My body isn't functioning right." Problems Identified/Issues Discussed: No new events overnight. Patient continues to be somatically preoccupied and is convinced that he can not walk. Psychoeducation provided that the patient does not have any medical deficits that would prevent him from walking. He continues to be bizarre w/ poverty of speech. Medication Change: No Medical Record Reviewed: Yes Consults ordered or reviewed: Medicine consult, Neurology consult Mental Status Examination - Cognitive Function Orientation: Person, Place, Situation, Time Memory: Intact Association: Loose Fund of Knowledge: Poor Decription of patient's judgement and insights: Poor I/J - Mood Mood: Depressed - Affect Affect: Blunted - Speech Speech: Soft - Formal Thought Process Formal Thought Process: Delusions (Delusions that his body is not functioning), Other (Poverty of speech) Psychotic Thoughts and Behaviors: +Somatic delusions - Suicidal Ideation Suicidal Ideation: No - Homicidal Ideation Homicidal Ideation: No Goal/Treatment Plan - Goal/Treatment Plan Need for Continued Stay: Remain at risks for inpatient hospitalization, Discharge may exacerbated symptoms, Severe functional impairment Progress Toward Problem(s) and Goals/Treatment Plan: Schizophrenia -Medicine consult -Neurology consult -PT evaluation -Risperdal 3 mg PO Q12; Cogentin 0.5 mg PO Q12 -Individual and group therapy -Disposition planning Estimated Date of D/C: 10/31/17
--- NOTE | 2017-10-28 17:36 | PCM.PYCHPN ---
Psychiatric Progress Note - Psychiatric Progress Note Patient seen today, length of contact: Patient evaluated, case discussed with team, chart reviewed Patient Chief Complaint: pt has been increasingly agitated and very restless and still talking to things and wants to walk and ne cant walk and remains very delusional and his somatic symptoms are still impairing his function. Medication Change: No Medical Record Reviewed: Yes Mental Status Examination - Cognitive Function Orientation: Person, Place, Situation, Time Memory: Intact Association: Loose Fund of Knowledge: Poor - Mood Mood: Depressed - Affect Affect: Blunted - Speech Speech: Soft - Formal Thought Process Formal Thought Process: Delusions (Delusions that his body is not functioning), Other (Poverty of speech) - Suicidal Ideation Suicidal Ideation: No - Homicidal Ideation Homicidal Ideation: No Goal/Treatment Plan - Goal/Treatment Plan Need for Continued Stay: Remain at risks for inpatient hospitalization, Discharge may exacerbated symptoms, Severe functional impairment Estimated Date of D/C: 10/31/17
[2017-10-28 19:11] LABS: BASO # 0.1 K/uL (0.0-0.2); BASO % 0.9 % (0.0-2.0); EOS # 0.1 K/uL (0.0-0.7); EOS % 1.1 % (0.0-4.0); LYMPH # 1.9 K/uL (1.0-4.3); MEAN CELL VOLUME 88.9 fl (80.0-94.0); MEAN CORPUSCULAR HEMOGLOBIN 30.4 pg (27.0-31.0); MEAN CORPUSCULAR HGB CONC 34.2 g/dL (33.0-37.0); MEAN PLATELET VOLUME 10.3 fl (7.2-11.7); MONO # 0.4 K/uL (0.0-0.8); MONO % 7.7 % (0.0-10.0); NEUT # 3.1 K/uL (1.8-7.0); NEUT % 55.3 % (50.0-75.0); NRBC % 0.1 % (0.0-0.0); RBC 4.27 Mil/uL (4.40-5.90); RED CELL DISTRIBUTION WIDTH 15.9 % (11.5-14.5); WHITE BLOOD COUNT 5.5 K/uL (4.8-10.8)
[2017-10-28 19:31] LABS: ALB/GLOB RATIO 1.3 (1.0-2.1); ALBUMIN 4.1 g/dL (3.5-5.0); ALT/SGPT 33 U/L (21-72); AST/SGOT 24 U/L (17-59); BLOOD UREA NITROGEN 15 mg/dl (9-20); CALCIUM 9.4 mg/dL (8.4-10.2); GFR AFRICAN-AMERICAN > 60; GFR NON-AFRICAN AMERICAN > 60
[2017-10-28] MEDS ORDERED: DiphenhydrAMINE 50 mg/ml Inj IM STA (22:10)
--- NOTE | 2017-10-28 22:37 | CP.PCM.PN ---
Subjective - Date & Time of Evaluation Date of Evaluation: 10/28/17 Time of Evaluation: 22:37 Objective - Vital Signs/Intake and Output Vital Signs (last 24 hours): Temp Pulse Resp BP Pulse Ox 97.7 F 98 H 20 103/60 100 10/28/17 15:38 10/28/17 15:38 10/28/17 15:38 10/28/17 15:38 10/19/17 04:38 - Medications Medications: Current Medications Acetaminophen (Tylenol 325mg Tab) 650 mg PO Q4 PRN PRN Reason: Pain, moderate (4-7) Last Admin: 10/20/17 18:20 Dose: 650 mg Al Hydrox/Mg Hydrox/Simethicone (Maalox Plus 30 Ml) 30 ml PO Q4 PRN PRN Reason: Dyspepsia Benztropine Mesylate (Cogentin) 0.5 mg PO Q12 RAFFY Last Admin: 10/28/17 08:23 Dose: 0.5 mg Diphenhydramine HCl (Benadryl) 50 mg IM Q6 PRN PRN Reason: Extrapyramidal S/S Unable PO Last Admin: 10/28/17 20:15 Dose: 50 mg Diphenhydramine HCl (Benadryl) 50 mg PO Q6 PRN PRN Reason: Extrapyramidal Symptoms Last Admin: 10/28/17 14:04 Dose: 50 mg Haloperidol (Haldol) 5 mg PO Q4 PRN PRN Reason: Agitation Last Admin: 10/28/17 14:04 Dose: 5 mg Haloperidol Lactate (Haldol) 5 mg IM Q4 PRN PRN Reason: Agitation, Unable to Take PO Lorazepam (Ativan) 2 mg PO Q8 PRN PRN Reason: Agitation Lorazepam (Ativan) 2 mg IM Q8 PRN PRN Reason: Agitation Magnesium Hydroxide (Milk Of Magnesia) 30 ml PO HS PRN PRN Reason: Constipation Risperidone (Risperdal Tab) 3 mg PO Q12 RAFFY Last Admin: 10/28/17 08:23 Dose: 3 mg - Labs Labs: 10/28/17 19:00 10/28/17 19:00
--- NOTE | 2017-10-29 11:29 | PCM.PYCHPN ---
Psychiatric Progress Note - Psychiatric Progress Note Patient seen today, length of contact: Patient evaluated, case discussed with team, chart reviewed Patient Chief Complaint: "My body isn't functioning right." Problems Identified/Issues Discussed: Patient continues to be somatically preoccupied and is convinced that he can not walk. Psychoeducation provided that the patient does not have any medical deficits that would prevent him from walking. He continues to be bizarre w/ poverty of speech. He denies AH. He had some mild EPS yesterday; will increase Cogentin today. Medication Change: Yes (Increase Cogentin) Medical Record Reviewed: Yes Consults ordered or reviewed: Medicine consult, Neurology consult Mental Status Examination - Cognitive Function Orientation: Person, Place, Situation, Time Memory: Intact Association: Loose Fund of Knowledge: Poor Decription of patient's judgement and insights: Poor I/J - Mood Mood: Depressed - Affect Affect: Blunted - Speech Speech: Soft - Formal Thought Process Formal Thought Process: Delusions (Delusions that his body is not functioning), Other (Poverty of speech) Psychotic Thoughts and Behaviors: +Somatic Delusions - Suicidal Ideation Suicidal Ideation: No - Homicidal Ideation Homicidal Ideation: No Goal/Treatment Plan - Goal/Treatment Plan Need for Continued Stay: Remain at risks for inpatient hospitalization, Discharge may exacerbated symptoms, Severe functional impairment Progress Toward Problem(s) and Goals/Treatment Plan: Schizophrenia -Medicine consult -Neurology consult -PT evaluation -Risperdal 3 mg PO Q12; Cogentin 1 mg PO Q12 -Individual and group therapy -Disposition planning Estimated Date of D/C: 11/02/17
--- NOTE | 2017-10-30 11:20 | PCM.PYCHPN ---
Psychiatric Progress Note - Psychiatric Progress Note Patient seen today, length of contact: Patient evaluated, case discussed with team, chart reviewed Patient Chief Complaint: "My body isn't functioning right." Problems Identified/Issues Discussed: Patient continues to be somatically preoccupied and is convinced that he can not walk. He does not make an effort to get out of bed or care for himself. He denies AH/VH/SI/HI. He has poor insight/judgment despite being provided psychoeducation that he does not have any medical deficits at this time. No current EPS. Medication Change: No Medical Record Reviewed: Yes Consults ordered or reviewed: Medicine consult, Neurology consult Mental Status Examination - Cognitive Function Orientation: Person, Place, Situation, Time Memory: Intact Association: Loose Fund of Knowledge: Poor Decription of patient's judgement and insights: Poor I/J - Mood Mood: Depressed - Affect Affect: Blunted - Speech Speech: Soft - Formal Thought Process Formal Thought Process: Delusions (Delusions that his body is not functioning), Other (Poverty of speech) Psychotic Thoughts and Behaviors: +Somatic Delusions - Suicidal Ideation Suicidal Ideation: No - Homicidal Ideation Homicidal Ideation: No Goal/Treatment Plan - Goal/Treatment Plan Need for Continued Stay: Remain at risks for inpatient hospitalization, Discharge may exacerbated symptoms, Severe functional impairment Progress Toward Problem(s) and Goals/Treatment Plan: Schizophrenia -Medicine consult -Neurology consult -PT evaluation -Risperdal 3 mg PO Q12; Cogentin 1 mg PO Q12 -Individual and group therapy -Disposition planning Estimated Date of D/C: 11/02/17
--- NOTE | 2017-10-30 11:47 | CP.PCM.PN ---
Subjective - Date & Time of Evaluation Date of Evaluation: 10/23/17 Time of Evaluation: 14:00 - Subjective Subjective: MR kaye's chart and images were reviewed. MRI thoracic and lumbar spine are normal and without any cord compression, or myelmalacia. He continues to say that he has severe weakness, but no sensory level is found and reflexes are present. Denies diarrhea, ataxia, or headache. on exam: Neurological exam is only significant for give way weakness in lower limbs. +2 dtr ul and ll bl. toes downgoing. no clonus Objective - Vital Signs/Intake and Output Vital Signs (last 24 hours): Temp Pulse Resp BP Pulse Ox 97.7 F 95 H 20 136/93 H 100 10/23/17 15:57 10/23/17 15:57 10/23/17 15:57 10/23/17 15:57 10/19/17 04:38 - Medications Medications: Current Medications Acetaminophen (Tylenol 325mg Tab) 650 mg PO Q4 PRN PRN Reason: Pain, moderate (4-7) Last Admin: 10/20/17 18:20 Dose: 650 mg Al Hydrox/Mg Hydrox/Simethicone (Maalox Plus 30 Ml) 30 ml PO Q4 PRN PRN Reason: Dyspepsia Benztropine Mesylate (Cogentin) 0.5 mg PO HS RAFFY Carbidopa/Levodopa (Sinemet) 1 tab PO TID RAFFY Diphenhydramine HCl (Benadryl) 50 mg IM Q6 PRN PRN Reason: Extrapyramidal S/S Unable PO Diphenhydramine HCl (Benadryl) 50 mg PO Q6 PRN PRN Reason: Extrapyramidal Symptoms Haloperidol (Haldol) 5 mg PO Q4 PRN PRN Reason: Agitation Haloperidol Lactate (Haldol) 5 mg IM Q4 PRN PRN Reason: Agitation, Unable to Take PO Lorazepam (Ativan) 1 mg IM Q8 PRN PRN Reason: Anxiety/Agitation,Unable PO Lorazepam (Ativan) 1 mg PO Q8 PRN PRN Reason: Anxiety/Agitation Magnesium Hydroxide (Milk Of Magnesia) 30 ml PO HS PRN PRN Reason: Constipation Risperidone (Risperdal M-Tab) 4 mg PO HS RAFFY - Labs Labs: 10/19/17 01:20 10/19/17 01:20 Assessment and Plan - Assessment and Plan (Free Text) Assessment: Patient with normal neurological examination, who has subjective feeling of weakness in legs. He is clear for discharge from a neurological point of view. Plan: 1. EMG lower limbs 2. Followup in 3 months.
[2017-10-30 18:46] LABS: LYME IGM NEGATIVE (NEGATIVE)
[2017-10-30 18:59] LABS: LYME IGG NEGATIVE (NEGATIVE)
--- NOTE | 2017-10-31 08:21 | PCM.PYCHPN ---
Psychiatric Progress Note - Psychiatric Progress Note Patient seen today, length of contact: Patient evaluated, case discussed with team, chart reviewed Patient Chief Complaint: "My body isn't functioning right." Problems Identified/Issues Discussed: Patient continues to have a fixed delusion that he can not walk, despite not having any medical issues that would cause him not to be able to ambulate. He will not get out of bed to do anything. He will not participate in groups or therapy. He will not bath himself or get out of bed to use the bathroom. He will only go to a commode at the side of his bed with staff assistance. He denies AH/VH/SI/HI. He has poor insight/judgment despite being provided psychoeducation that he does not have any medical deficits at this time. No current EPS. Medication Change: Yes (Increase Risperdal) Medical Record Reviewed: Yes Consults ordered or reviewed: Medicine consult, Neurology consult, Physical Therapy Evaluation Mental Status Examination - Cognitive Function Orientation: Person, Place, Situation, Time Memory: Intact Association: Loose Fund of Knowledge: Poor Decription of patient's judgement and insights: Poor I/J - Mood Mood: Depressed - Affect Affect: Blunted - Speech Speech: Soft - Formal Thought Process Formal Thought Process: Delusions (Delusions that his body is not functioning), Other (Poverty of speech) Psychotic Thoughts and Behaviors: +Somatic Delusions - Suicidal Ideation Suicidal Ideation: No - Homicidal Ideation Homicidal Ideation: No Goal/Treatment Plan - Goal/Treatment Plan Need for Continued Stay: Remain at risks for inpatient hospitalization, Discharge may exacerbated symptoms, Severe functional impairment Progress Toward Problem(s) and Goals/Treatment Plan: Schizophrenia; patient is severely decompensated and has shown no clinical improvement. He does not participate in groups or treatment. He will not perform any basic self care or get out of bed. Patient will need longer term treatment and will be screened for involuntary psychiatric admission. -Medicine consult -Neurology consult -PT evaluation -Increase Risperdal to 3 mg PO AM/ 4 mg PO HS; Cogentin 1 mg PO Q12 -Individual and group therapy offered; patient will not participate -Screen for involuntary psychiatric admission Estimated Date of D/C: 11/02/17
[2017-10-31] MEDS ORDERED: Risperidone M TAB 2 MG PO SCH ×2 (09:00→21:00)
--- NOTE | 2017-10-31 17:10 | RAD ---
Date of service: 10/31/2017 PROCEDURE: CHEST RADIOGRAPH, 1 VIEW HISTORY: r/o disease process COMPARISON: None available. FINDINGS: LUNGS: Clear. PLEURA: No pneumothorax or pleural fluid seen. CARDIOVASCULAR: Normal. OSSEOUS STRUCTURES: No significant abnormalities. VISUALIZED UPPER ABDOMEN: Normal. OTHER FINDINGS: None. IMPRESSION: No active disease.
[2017-10-31 22:48] VITALS: BP 118/70; PULSE 89; RESP 18; TEMP 98.7
--- NOTE | 2017-11-01 09:58 | PCM.PYCHDC ---
Mental Status Examination - Mental Status Examination Orientation: Person, Place, Situation, Time Memory: Impaired Mood: Depressed Affect: Blunted Speech: Appropriate Attention: Poor Concentration: Poor Association: Loose Fund of Knowledge: Poor Formal Thought Process: Delusions Description of patient's judgement and insight: Poor I/J Psychotic Thoughts and Behaviors: +Somatic Delusions Suicidal Ideation: No Current Homicidal Ideation?: No Discharge Summary - Discharge Note Reason for Hospitalization: HPI: 21 yo male w/ h/o schizophrenia, presents w/ generalized body complaints that his body isn't working and that he can't walk or write; despite not having any obvious functional deficits. He reports feeling depressed due to perceiving that his body isn't working. He reports that he last heard auditory hallucinations yesterday. He has been non-compliant with treatment and medications, but reports that he was last prescribed Risperdal. He is a poor historian and gives minimal information. Denies VH/SI/HI/paranoia. PPHx: H/o Schizophrenia; h/o psychiatric admission 2013. Not complaint with treatment or medications PMHx: Denies chronic medical conditions except for above complaints that his body does not function properly ALL: NKDA FHx: Denies family history; as per chart, patient's mother may have mental illness SHx: Patient reports that he lives w/ his father, but this is unclear as per chart. Denies drugs/etoh/cig. Consultations:: List each consultation separately and include: 1. Reason for request. 2. Findings. 3. Follow-up Consultations: Medicine consult, Neurology consult, Physical Therapy Evaluation Summary of Hospital Course include:: 1. Description of specific treatment plan utilized for patients during their course of treatmen. 2. Summarize the time- course for resolution of acute symptoms and/or regressed behaviors. 3. Describe issues identified and worked on during hospitalization. 4. Describe medication utilized. 5. Describe medical problems identified and treated. 6. Reassessment of suicide risk Summary of Hospital Course: Patient was admitted to the psychiatry unit. He was treated w/ Risperdal and Cogentin, but had continued delusions that he could not walk despite not having any medical reason to explain these symptoms. He would not participate in treatment or get out of the bed to even perform basic self care. Patient was screened by [facility] [place], accepted and transferred for involuntary admission. - Diagnosis (1) Schizophrenia Status: Acute - Final Diagnosis (DSM 5) Condition upon Discharge: SERIOUS DSM 5: Schizophrenia Disposition: Trans to Other Acute Care Hosp Follow-up Treatment Plan: Schizophrenia; Discharge to [facility] [place] for involuntary commitment - Smoking Cessation Smoking Cessation Medication prescribed: No Reason for not providing: Not indicated - Antipsychotic Medications Pt discharged on 2 or more routine antipsychotic medications: No
--- NOTE | 2017-11-01 15:08 | CARD ---
APPROVED REPORT Date of service: 10/31/2017 EKG Measurement Heart [id number] <Conclusion> Normal sinus rhythm Normal ECG
== END 2017-10-31 22:05 | disposition short-term general hospital (02) | DRG 430 ==
LOC: H.ER 21:47 → H.ERHOLD 10-19 03:01 → H.STEP 10-19 05:39
PROVIDERS: ADMIT Psychiatry & Neurology Psychiatry; ATTEND Psychiatry & Neurology Psychiatry
PROC: GZ51ZZZ Individual Psychotherapy, Behavioral (ICD-10-PCS; 2017-10-20)
PROC: GZHZZZZ Group Psychotherapy (ICD-10-PCS; principal; 2017-10-25)
DX: F20.9 Schizophrenia, unspecified (principal); G20 Parkinson's disease; S80.211A Abrasion, right knee, initial encounter; S80.212A Abrasion, left knee, initial encounter; Z59.0 Homelessness; Z79.899 Other long term (current) drug therapy; Z91.14 Patient's other noncompliance with medication regimen; Z91.19 Patient's noncompliance with other medical treatment and regimen; F12.90 Cannabis use, unspecified, uncomplicated; R29.6 Repeated falls; Z87.828 Personal history of other (healed) physical injury and trauma